=== PATIENT | male | born 1960 | race Caucasian/White ===

== ENCOUNTER 2016-09-17 13:03 | Emergency (ER) | payer BC, OTHER ==
[~2016-09-17] VITALS: Ht 188 cm; Wt 103.0 kg
[~2016-09-17 13:03] MED LIST: BACTRIM DS TAB1 EAC1 ORAL; CYCLOBENZAPRINE10 MG ORAL; IBUPROFEN600 MG ORAL; NORCO 5-325 TA1 EACH ORAL
[2016-09-17] MEDS ORDERED: Lidocaine 2% Visc 15ml soln ORAL ONE (13:45)
[2016-09-17] MEDS ORDERED: Famotidine 20 MG/ 2ML VIAL IVP ONE (13:45)
[2016-09-17] MEDS ORDERED: Mylanta II UD 30ml ORAL ONE (13:45)
[2016-09-17] MEDS ORDERED: Dicyclomine HCl 10mg/5ml oral soln ORAL ONE (13:45)
[2016-09-17 14:26] LABS: BASOPHILS % (AUTO) 0.2 % (0.0-2.0); EOSINOPHILS % (AUTO) 0.4 % (0.0-3.0); LYMPHOCYTES % (AUTO) 12.1 % (20.0-45.0); MEAN CORPUSCULAR HEMOGLOBIN 28.6 PG (27.0-31.0); MEAN CORPUSCULAR HGB CONC 33.2 G/DL (32.0-36.0); MEAN CORPUSCULAR VOLUME 86 FL (80-99); MEAN PLATELET VOLUME 6.3 FL (6.5-10.1); MONOCYTES % (AUTO) 6.6 % (1.0-10.0); NEUTROPHILS % (AUTO) 80.7 % (45.0-75.0); PLATELET COUNT 175 K/UL (150-450); RED BLOOD COUNT 5.44 M/UL (4.70-6.10); RED CELL DISTRIBUTION WIDTH 12.5 % (11.6-14.8); WHITE BLOOD COUNT 8.7 K/UL (4.8-10.8)
[2016-09-17 14:42] LABS: ALANINE AMINOTRANSFERASE 35 U/L (3-41); ALBUMIN/GLOBULIN RATIO 1.7 (1.0-2.7); ANION GAP 12 (5-15); ASPARTATE AMINO TRANSFERASE 29 U/L (5-40); CARBON DIOXIDE 27 mEQ/L (20-30); CHLORIDE 99 mEQ/L (98-107); CREATININE 1.1 mg/dL (0.7-1.2); GLOMERULAR FILTRATION RATE > 60 mL/min (>60); HEMOLYSIS 10; LIPASE 30 U/L (< 60); SODIUM 138 mEQ/L (135-145); TROPONIN I < 0.30 ng/mL (<=0.30)
--- NOTE | 2016-09-17 14:58 | Emergency Room Report ---
History of Present Illness General Chief Complaint: Abdominal Pain Source: Patient Present Illness HPI 55-year-old male presents ED complaining of abdominal pain with vomiting and diarrhea. States symptoms started last night after eating peanuts. Denies any known food or drug allergies. Patient is full of vomiting and diarrhea. Cramping abdominal pain, 7/10, nonradiating. Denies fevers or chills. Denies chest pain or shortness of breath. Denies recent antibiotic use. Denies recent travel. No aggravating relieving factors. Denies any other associated symptoms Allergies: Coded Allergies: No Known Allergies (Unverified , 02/19/14) Patient History Past Medical History: DM, HTN, other - crohns Past Surgical History: none Pertinent Family History: none Social History: Denies: alcohol use, drug use, smoking Immunizations: UTD Reviewed Nursing Documentation: PMH: Agreed, PSxH: Agreed Nursing Documentation-PMH Past Medical History: No History, Except For Hx Hypertension: Yes Hx Diabetes: Yes Hx Gastrointestinal Problems: Yes - CROHN'S Review of Systems All Other Systems: negative except mentioned in HPI Physical Exam Vital Signs Date Time Temp Pulse Resp B/P Pulse Ox O2 Delivery O2 Flow Rate FiO2 09/17/16 13:39 98.1 82 22 140/86 98 Room Air Sp02 EP Interpretation: reviewed, normal General Appearance: no apparent distress, alert, GCS 15, non-toxic Head: normocephalic, atraumatic Eyes: bilateral eye PERRL, bilateral eye normal inspection ENT: hearing grossly normal, normal pharynx, no angioedema, normal voice Neck: full range of motion, supple/symm/no masses Respiratory: chest non-tender, lungs clear, normal breath sounds, speaking full sentences Cardiovascular #1: regular rate, rhythm, no edema Cardiovascular #2: 2+ carotid (R), 2+ carotid (L), 2+ radial (R), 2+ radial (L) , 2+ dorsalis pedis (R), 2+ dorsalis pedis (L) Gastrointestinal: normal bowel sounds, soft, non-distended, no guarding, no rebound, tenderness - periumbilical Rectal: deferred Genitourinary: normal inspection, no CVA tenderness Musculoskeletal: back normal, gait/station normal, normal range of motion, non- tender, calf tenderness Neurologic: alert, oriented x3, responsive, motor strength/tone normal, sensory intact, speech normal Psychiatric: judgement/insight normal, memory normal, mood/affect normal, no suicidal/homicidal ideation Reflexes: 3+ bicep (R), 3+ bicep (L), 3+ tricep (R), 3+ tricep (L), 3+ knee (R) , 3+ knee (L) Skin: normal color, no rash, warm/dry, well hydrated Lymphatic: no adenopathy Medical Decision Making Diagnostic Impression: Primary Impression: Gastroenteritis ER Course Hospital Course 55-year-old M presents to ED with cramping abdominal pain with vomiting, diarrhea differential diagnosis: gastritis, SBO, cholecystits, gastroenteritis Clinical course Patient placed on stretcher. 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 After initial history and physical I ordered labs, IV fluids, Zofran and pepcid Labs - no leukocytosis, electrolytes ok, LFTs normal Upon reassessment, patient states pain has improved. findings consistent with gastroenteritis I feel this is a highly complex case requiring extensive working including EKG/ Rhythm strip, Xray/CT/US, Blood/urine lab work, repeat exams while in ED, and administration of strong opiates/narcotics for pain control, admission to hospital or close patient follow up. Diagnosis - gastroenteritis Stable and discharged to home with prescriptions for zofran, bentyl. Followup with PMD. Return to ED if symptoms recur or worsen Labs Test 09/17/16 14:10 White Blood Count 8.7 K/UL (4.8-10.8) Red Blood Count 5.44 M/UL (4.70-6.10) Hemoglobin 15.6 G/DL (14.2-18.0) Hematocrit 46.8 % (42.0-52.0) Mean Corpuscular Volume 86 FL (80-99) Mean Corpuscular Hemoglobin 28.6 PG (27.0-31.0) Mean Corpuscular Hemoglobin Concent 33.2 G/DL (32.0-36.0) Red Cell Distribution Width 12.5 % (11.6-14.8) Platelet Count 175 K/UL (150-450) Mean Platelet Volume 6.3 FL (6.5-10.1) Neutrophils (%) (Auto) 80.7 % (45.0-75.0) Lymphocytes (%) (Auto) 12.1 % (20.0-45.0) Monocytes (%) (Auto) 6.6 % (1.0-10.0) Eosinophils (%) (Auto) 0.4 % (0.0-3.0) Basophils (%) (Auto) 0.2 % (0.0-2.0) Sodium Level 138 mEQ/L (135-145) Potassium Level 4.0 mEQ/L (3.4-4.9) Chloride Level 99 mEQ/L (98-107) Carbon Dioxide Level 27 mEQ/L (20-30) Anion Gap 12 (5-15) Blood Urea Nitrogen 23 mg/dL (7-23) Creatinine 1.1 mg/dL (0.7-1.2) Estimat Glomerular Filtration Rate > 60 mL/min (>60) Glucose Level 133 mg/dL (74-106) Calcium Level 10.0 mg/dL (8.6-10.2) Total Bilirubin 0.5 mg/dL (0.0-1.2) Aspartate Amino Transf (AST/SGOT) 29 U/L (5-40) Alanine Aminotransferase (ALT/SGPT) 35 U/L (3-41) Alkaline Phosphatase 61 U/L (40-129) Troponin I < 0.30 ng/mL (<=0.30) Total Protein 8.0 g/dL (6.6-8.7) Albumin 5.1 g/dL (3.5-5.2) Globulin 2.9 g/dL Albumin/Globulin Ratio 1.7 (1.0-2.7) Lipase 30 U/L (< 60) Last Vital Signs Date Time Temp Pulse Resp B/P Pulse Ox O2 Delivery O2 Flow Rate FiO2 09/17/16 13:39 98.1 82 22 140/86 98 Room Air Status: improved Disposition: HOME, SELF-CARE Condition: Stable Scripts Dicyclomine Hcl* (BENTYL*) 10 Mg Capsule 10 MG ORAL FOUR TIMES A DAY, #20 CAP Prov: ELIJAH DIAZ M.D. 09/17/16 Ondansetron Odt* (ZOFRAN ODT*) 4 Mg Tab.rapdis 4 MG ORAL Q6H Y for Nausea & Vomiting, #30 TAB 0 Refills Prov: ELIJAH DIAZ M.D. 7/8/17 Referrals: NON PHYSICIAN (PCP) ELIJAH DIAZ M.D. Sep 17, 2016 14:58
[2016-09-17] MEDS ORDERED: ZOFRAN ODT4 MG ORAL (15:05)
[2016-09-17] MEDS ORDERED: BENTYL10 MG ORAL (15:05)
[2016-09-17] MEDS ORDERED: ALPRAZolam 0.25mg tab ORAL ONE (15:15)
[2016-09-17 15:35] VITALS: BP 138/79
[2016-09-17 15:46] VITALS: BP 138/79
== END 2016-09-17 15:35 | disposition home or self-care (01) ==
LOC: EMR 13:45
DX: K52.9 Noninfective gastroenteritis and colitis, unspecified (principal); E11.9 Type 2 diabetes mellitus without complications; I10 Essential (primary) hypertension; K50.90 Crohn's disease, unspecified, without complications
CPT/HCPCS: 36415; 80053; 83690; 84484; 85025; 96374; 96375; 99284; J2405; S0028

== ENCOUNTER 2019-05-23 00:22 | Emergency (ER) | payer BC ==
[~2019-05-23] VITALS: Ht 188 cm; Wt 108.0 kg
[~2019-05-23 00:22] MED LIST changes: +BENTYL10 MG ORAL; +ZOFRAN ODT4 MG ORAL
--- NOTE | 2019-05-23 00:30 | NUR ---
ED Nurse Note: PT WALKED TO ED FROM HOME C/O GENERELIZED WEAKNESS X1WK WITH LOW GRADE FEVER INTERMITTENTLY. PT STATES HX HIV. 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 PT DENIES RESP ILLNESS, DENIES TRAVEL OUTSIDE US, DENIES CONTACT WITH PEOPLE FROM [place]. PT PRESENTS WITH INTERMITTENT COUGH.VSS
--- NOTE | 2019-05-23 00:45 | NUR ---
ED Nurse Note: [facility] NOTIFIED OF POSSIBLE CORONAVIRUS.
--- NOTE | 2019-05-23 01:00 | NUR ---
ED Nurse Note: ERMD AND PRIMARY RN AT BEDSIDE WITH PROPER PPE EQUIPMENT. PATIENT IS PLACED IN TRAUMA WITH HEPA FILTER ACTIVE. PATIENT IS PLACED ON MASK AND ON MONITOR.
[2019-05-23 01:30] VITALS: BP 135/86
--- NOTE | 2019-05-23 01:30 | NUR ---
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
--- NOTE | 2019-05-23 01:47 | Emergency Room Report ---
History of Present Illness General Chief Complaint: Generalized Weakness Source: Patient Present Illness HPI Disclaimer: Please note that this report is being documented using DRAGON technology. This can lead to erroneous entry secondary to incorrect interpretation by the dictating instrument. HPI: 58-year-old male history of HIV on retroviral therapy presents for evaluation of fatigue and fevers. States he has been sick for approximately 1 week. He notes generalized malaise and fatigue, and intermittent nonproductive cough and 1 day of fever. 2 days ago he had a temperature of 100.8. This resolved after taking NyQuil. He has had no fevers over the past 2 days. He feels rundown but denies any abdominal pain, nausea, vomiting, chest pain. He feels short of breath with prolonged walking or going up and down the stairs. He denies any sore throat, nasal congestion, ear pain, hoarse voice. He presents today in particular because he is concerned he may have the novel coronavirus. 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 He has had no foreign travelers from [place] over the past few months. He currently has a guest from [facility]. No one from [place] has stayed with him. He does not believe his current guest has any symptoms or signs of illness. His symptoms began prior to his guest's arrival 3 days ago. PMH: HIV, diabetes Allergies: Denies Social Hx: Tabaco use Allergies: Coded Allergies: No Known Allergies (Unverified , 05/23/19) Nursing Documentation-PMH Hx Hypertension: Yes Hx Diabetes: Yes Hx Gastrointestinal Problems: Yes - CROHN'S Review of Systems All Other Systems: negative except mentioned in HPI Physical Exam Vital Signs Date Time Temp Pulse Resp B/P (MAP) Pulse Ox O2 Delivery O2 Flow Rate FiO2 05/23/19 00:25 98.2 115 22 124/83 (97) 95 Room Air General: Awake and alert, no acute distress HEENT: NC/AT. EOMI. no pharyngeal edema or erythema. Cardiovascular: RRR. S1 and S2 normal. No murmur appreciated Resp: Normal work of breathing. No cough, wheezing or crackles appreciated Abdomen: Abdomen is soft, nondistended. Nontender Skin: Intact. No abrasions, laceration or rash over the exposed skin MSK: Normal tone and bulk. Moving all extremities. No obvious deformity. No pedal edema. Neuro: Awake and alert. Mentating appropriately. Medical Decision Making Diagnostic Impression: Primary Impression: Hyperglycemia Additional Impression: Viral syndrome ER Course Is a 58-year-old male history of HIV presents for evaluation of febrile illness and weakness concern over novel coronavirus. The patient was originally tachycardic in triage however during my examination has a regular rate and rhythm, clear lungs, saturating 98% on room air and in no respiratory distress. He is afebrile and states that his last fever was 2 days ago. Overall he is well-appearing with stable vital signs. His concern over his current [employer] guest was discussed with health department and the patient was placed in isolation and a negative pressure room with full contact precautions as per current health department guidelines. Dr. Andrade at the [facility] department of public health agrees that the patient does not meet current criteria for testing for COVID-19. Patient reporting symptoms started prior to his foreign guest arriving, is afebrile, stable heart rate and shows no signs of systemic infection. We will send a flu swab, screening labs and perform chest x-ray. Laboratory Tests Test 05/23/19 02:30 White Blood Count 3.8 K/UL (4.8-10.8) L Red Blood Count 4.72 M/UL (4.70-6.10) Hemoglobin 14.5 G/DL (14.2-18.0) Hematocrit 42.4 % (42.0-52.0) Mean Corpuscular Volume 90 FL (80-99) Mean Corpuscular Hemoglobin 30.7 PG (27.0-31.0) Mean Corpuscular Hemoglobin Concent 34.1 G/DL (32.0-36.0) Red Cell Distribution Width 12.2 % (11.6-14.8) Platelet Count 169 K/UL (150-450) Mean Platelet Volume 6.1 FL (6.5-10.1) L Neutrophils (%) (Auto) 36.4 % (45.0-75.0) L Lymphocytes (%) (Auto) 49.8 % (20.0-45.0) H Monocytes (%) (Auto) 7.6 % (1.0-10.0) Eosinophils (%) (Auto) 4.8 % (0.0-3.0) H Basophils (%) (Auto) 1.5 % (0.0-2.0) Sodium Level 136 MMOL/L (136-145) Potassium Level 3.8 MMOL/L (3.5-5.1) Chloride Level 100 MMOL/L (98-107) Carbon Dioxide Level 23 MMOL/L (21-32) Anion Gap 13 mmol/L (5-15) Blood Urea Nitrogen 26 mg/dL (7-18) H Creatinine 1.3 MG/DL (0.55-1.30) Estimate Glomerular Filtration Rate 56.5 mL/min (>60) Glucose Level 318 MG/DL (74-106) H Calcium Level 9.4 MG/DL (8.5-10.1) Total Bilirubin 0.3 MG/DL (0.2-1.0) Aspartate Amino Transferase (AST) 18 U/L (15-37) Alanine Aminotransferase (ALT) 45 U/L (12-78) Alkaline Phosphatase 63 U/L (46-116) Total Protein 7.8 G/DL (6.4-8.2) Albumin 3.7 G/DL (3.4-5.0) Globulin 4.1 g/dL Albumin/Globulin Ratio 0.9 (1.0-2.7) L Microbiology Date/Time Source Procedure Growth Status 05/23/19 02:30 Nasal Nares - Final Complete 05/23/19 02:30 Nasal Nares - Final Complete Chest X-Ray Diagnostic Results Chest X-Ray Diagnostic Results : Chest X-Ray Ordered: Yes # of Views/Limited/Complete: 1 View Indication: Shortness of Breath EP Interpretation: Yes Interpretation: no consolidation, no effusion, no pneumothorax, no acute cardiopulmonary disease Impression: No acute disease Electronically Signed by: Electronically signed by Dr. Stephen Webb Reevaluation Time: 03:12 Last Vital Signs Date Time Temp Pulse Resp B/P (MAP) Pulse Ox O2 Delivery O2 Flow Rate FiO2 05/23/19 00:25 98.2 115 22 124/83 (97) 95 Room Air Reevaluation Impression Chest x-ray does not show evidence of an acute pneumonia or other significant pathology. Patient likely experiencing a viral syndrome. Labs are largely within normal limits though glucose was elevated. He states it is chronically elevated and he is taking metformin. He will have this rechecked on an outpatient basis by PMD/clinic. Influenza swabs returned negative. Patient has had symptoms for over a week and therefore is outside the Tamiflu treatment timeframe. I encouraged him to remain home until his symptoms are resolved, wash his hands frequency, limit contact with others and to follow-up with his doctor as soon as possible. He can return with any new or worsening symptoms. Disposition: HOME, SELF-CARE Condition: Stable Scripts Ibuprofen* (MOTRIN*) 600 Mg Tablet 600 MG ORAL Q8H PRN for For Pain, #30 TAB 0 Refills Prov: Stephen Webb MD 05/23/19 Acetaminophen* (TYLENOL EXTRA STRENGTH*) 500 Mg Tablet 500 MG ORAL Q8H PRN for Prn Headache/Temp > 101, #30 TAB 0 Refills Prov: Stephen Webb MD 05/23/19 Referrals: NON PHYSICIAN (PCP) Stephen Webb MD May 23, 2019 01:47
--- NOTE | 2019-05-23 02:24 | NUR ---
ED Nurse Note: [facility] CALLED. DR STRANGE TRAVELING PLANT OPERATOR WITH DR INOCENTE DUBOIS. PER DR DUBOIS, PT IS MEDICALLY CLEARED AND DOES NOT NEED CORONAVIRUS TESTING.
--- NOTE | 2019-05-23 02:39 | NUR ---
ED Nurse Note: BLOOD AND FLU SWAB SENT TO LAB
[2019-05-23 02:41] LABS: BASOPHILS % (AUTO) 1.5 % (0.0-2.0); EOSINOPHILS % (AUTO) 4.8 % (0.0-3.0); HEMATOCRIT 42.4 % (42.0-52.0); HEMOGLOBIN 14.5 G/DL (14.2-18.0); LYMPHOCYTES % (AUTO) 49.8 % (20.0-45.0); MEAN CORPUSCULAR VOLUME 90 FL (80-99); MONOCYTES % (AUTO) 7.6 % (1.0-10.0); NEUTROPHILS % (AUTO) 36.4 % (45.0-75.0); PLATELET COUNT 169 K/UL (150-450); RED BLOOD COUNT 4.72 M/UL (4.70-6.10); RED CELL DISTRIBUTION WIDTH 12.2 % (11.6-14.8); WHITE BLOOD COUNT 3.8 K/UL (4.8-10.8)
[2019-05-23 02:50] LABS: ANION GAP 13 mmol/L (5-15); BLOOD UREA NITROGEN 26 mg/dL (7-18); CALCIUM 9.4 MG/DL (8.5-10.1); CARBON DIOXIDE 23 MMOL/L (21-32); CHLORIDE 100 MMOL/L (98-107); CREATININE 1.3 MG/DL (0.55-1.30); POTASSIUM 3.8 MMOL/L (3.5-5.1); SODIUM 136 MMOL/L (136-145)
[2019-05-23 02:55] LABS: ALANINE AMINOTRANSFERASE 45 U/L (12-78); ALBUMIN 3.7 G/DL (3.4-5.0); ALBUMIN/GLOBULIN RATIO 0.9 (1.0-2.7); ALKALINE PHOSPHATASE 63 U/L (46-116); ASPARTATE AMINO TRANSFERASE 18 U/L (15-37); BILIRUBIN,TOTAL 0.3 MG/DL (0.2-1.0)
--- NOTE | 2019-05-23 02:56 | NUR ---
ED Nurse Note: XR AT BEDSIDE
[2019-05-23] MEDS ORDERED: IBUPROFEN600 MG ORAL (03:11)
[2019-05-23] MEDS ORDERED: TYLENOL EXTRA500 MG ORAL (03:11)
[2019-05-23 03:25] VITALS: BP 135/86
--- NOTE | 2019-05-23 03:25 | NUR ---
ER DISCHARGE NOTE: Patient is cleared to be discharged per ERMD, pt is aox4, on room air, with stable vital signs. pt was given dc and prescription instructions, pt was able to verbalize understanding, pt id band and iv site removed without complications. pt is able to ambulate with steady gait. pt took all belongings.
--- NOTE | 2019-05-23 09:04 | Diagnostic Imaging Report ---
Indication: Cough Technique: One view of the chest Comparison: none Findings: Lungs and pleural spaces are clear. Heart size is normal. Impression: No acute process
== END 2019-05-23 03:25 | disposition home or self-care (01) ==
LOC: EMR 00:45
DX: E11.65 Type 2 diabetes mellitus with hyperglycemia (principal); I10 Essential (primary) hypertension; B34.9 Viral infection, unspecified; K50.90 Crohn's disease, unspecified, without complications
CPT/HCPCS: 36415; 71045; 80053; 85025; 86710; 99283

== ENCOUNTER 2020-03-16 18:08 | Emergency (ER) | payer BC, OTHER ==
[~2020-03-16] VITALS: Ht 188 cm; Wt 103.4 kg
[~2020-03-16 18:08] MED LIST changes: +ALPRAZOLAM0.5 MG PO; +IBUPROFEN800 MG PO; +TYLENOL EXTRA500 MG ORAL
--- NOTE | 2020-03-16 18:43 | Emergency Room Report ---
History of Present Illness General Chief Complaint: General Complaint Source: Patient (Stephen Webb MD) Present Illness HPI Disclaimer: Please note that this report is being documented using DRAGON technology. This can lead to erroneous entry secondary to incorrect inte rpretation by the dictating instrument. HPI: 59-year-old male presents for evaluation of polydipsia and polyuria. History of diabetes currently on Metformin. States he had outpatient testing and told by his doctor to come to the ER for further evaluation. Denies abdominal pain, nausea, vomiting, chest pain, palpitation, fever, chills, cough or congestion. Denies dysuria or hematuria. No other complaints at this time. Does not know specifically what lab tests were abnormal. 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 EOMI. Resp: Normal work of breathing Skin: Intact. No abrasions, laceration or rash over the exposed skin MSK: Normal tone and bulk. Moving all extremities. No obvious deformity. Neuro: Awake and alert. Mentating appropriately (Stephen Webb MD) Medical Decision Making Diagnostic Impression: Primary Impression: Hyperglycemia due to type 2 diabetes mellitus Qualified Codes: E11.65 - Type 2 diabetes mellitus with hyperglycemia ER Course Patient was signed out to me. He has a history of diabetes and presents with very high blood sugar. He has not been compliant with his diet and Metformin. He said sometimes he forgets the second dose. He said 5 years ago his blood sugar was really high and he was able to get his A1c level down to around 7. He received insulin here. Blood glucose dropped down to 300s. He does not want to stay. No evidence of DKA. will discharge home. His Metformin is already been increased to 1000 mg twice daily by his primary care doctor. (Alan Scott MD) Last Vital Signs Date Time Temp Pulse Resp B/P (MAP) Pulse Ox O2 Delivery O2 Flow Rate FiO2 03/16/20 18:13 98.4 123 19 123/82 (96) 99 Room Air (Stephen Webb MD) Status: improved (Alan Scott MD) Disposition: HOME, SELF-CARE Condition: Stable Additional Instructions: Take your Metformin regularly. Watch your diet. Follow-up with your doctor within a week for recheck. Return if symptoms worsen. Stephen Webb MD Mar 16, 2020 18:43 Alan Scott MD Mar 16, 2020 23:20
[2020-03-16] MEDS ORDERED: Insulin Human Regular 100units/ml 3ml IV ONE ×2 (19:00→22:15)
[2020-03-16 19:01] LABS: BASOPHILS % (AUTO) 1.2 % (0.0-2.0); EOSINOPHILS % (AUTO) 1.9 % (0.0-3.0); HEMATOCRIT 44.2 % (42.0-52.0); HEMOGLOBIN 14.8 G/DL (14.2-18.0); LYMPHOCYTES % (AUTO) 23.5 % (20.0-45.0); MEAN CORPUSCULAR VOLUME 95 FL (80-99); MONOCYTES % (AUTO) 10.4 % (1.0-10.0); NEUTROPHILS % (AUTO) 63.1 % (45.0-75.0); PLATELET COUNT 186 K/UL (150-450); RED BLOOD COUNT 4.64 M/UL (4.70-6.10); RED CELL DISTRIBUTION WIDTH 12.3 % (11.6-14.8); WHITE BLOOD COUNT 9.2 K/UL (4.8-10.8)
[2020-03-16 19:05] VITALS: BP 123/82
--- NOTE | 2020-03-16 19:08 | NUR ---
ED Nurse Note:pt. came from home with hyperglicemia, it was critical high on arrival, notified, pt. received insulin and iv fluids, he is A/Ox4 ambulatory, VSS
--- NOTE | 2020-03-16 19:12 | NUR ---
ED Nurse Note: Recived report from Soumya FERNANDEZ
[2020-03-16 19:13] LABS: CREATININE 1.9 MG/DL (0.55-1.30); POTASSIUM 4.2 MMOL/L (3.5-5.1)
[2020-03-16 19:20] LABS: ALBUMIN 4.4 G/DL (3.4-5.0); ALBUMIN/GLOBULIN RATIO 1.1 (1.0-2.7); BILIRUBIN,TOTAL 1.3 MG/DL (0.2-1.0)
[2020-03-16 19:30] LABS: BILIRUBIN,DIRECT 0.4 MG/DL (0.0-0.3)
[2020-03-16 19:32] VITALS: BP 119/80
--- NOTE | 2020-03-16 19:40 | NUR ---
ED Nurse Note: ER MD aware of Glucose
[2020-03-16 19:43] LABS: APPEARANCE,URINE CLEAR; BILIRUBIN, URINE NEGATIVE (NEGATIVE); COLOR,URINE PALE YELLOW; GLUCOSE, URINE (UA) 4+ (NEGATIVE); KETONES,URINE 2+ (NEGATIVE); LEUKOCYTE ESTERASE ,URINE NEGATIVE (NEGATIVE); NITRITE,URINE NEGATIVE (NEGATIVE); PH,URINE 5 (4.5-8.0); PROTEIN,URINE NEGATIVE (NEGATIVE); UROBILINOGEN,URINE NORMAL MG/DL (0.0-1.0)
--- NOTE | 2020-03-16 19:58 | NUR ---
ED Nurse Note: Pt is axox4, his mentation is appropriate and he speaks in complete sentances. His vitals are stable on RA as documented. IV fluids are running as ordered. ER MD and RN educated pt on plan of care. Pt is resting comfortably, no signs of distress noted.
[2020-03-16 21:43] LABS: CREATININE 1.7 MG/DL (0.55-1.30); POTASSIUM 3.8 MMOL/L (3.5-5.1)
--- NOTE | 2020-03-16 22:10 | NUR ---
ED Nurse Note: ER MD aware of blood glucose result.
--- NOTE | 2020-03-16 22:29 | NUR ---
ED Nurse Note: Pt began vomitting, ER MD aware, medicated pt per order.
[2020-03-16] MEDS ORDERED: DiphenhydrAMINE 50mg/ml Inj IVP ONE (23:00)
[2020-03-16 23:02] VITALS: BP 124/82
[2020-03-16 23:31] VITALS: BP 125/85
--- NOTE | 2020-03-16 23:31 | NUR ---
ER DISCHARGE NOTE: Patient is cleared to be discharged per ERMD, pt is aox4, on room air, with stable vital signs. pt was given dc and prescription instructions, pt was able to verbalize understanding, pt id band and iv site removed without complications. pt is able to ambulate with steady gait. pt took all belongings. Pt left by private car via [employer].
== END 2020-03-16 23:31 | disposition home or self-care (01) ==
LOC: EMR 19:02 → CANBEDREQ 19:34 → EMR 23:31
DX: E11.65 Type 2 diabetes mellitus with hyperglycemia (principal); I10 Essential (primary) hypertension; Z87.19 Personal history of other diseases of the digestive system
CPT/HCPCS: 36415; 80048; 80053; 81003; 82009; 82248; 83880; 85025; 96361; 96374; 96375; 96376; 99284; J1200; J1815; J2405; J7030